=== PATIENT | female | born 1990 | race Caucasian/White ===

== ENCOUNTER 2020-05-31 22:51 | Emergency (ER) | payer BC ==
[~2020-05-31] VITALS: Ht 172.7 cm; Wt 93.0 kg
[2020-06-01 00:47] LABS: BASOPHILS % 0.4 % (0.0-1.0); EOSINOPHILS # (AUTO) 0.1 (0.0-0.4); EOSINOPHILS % 1.3 % (0.0-6.0); HEMATOCRIT 37.8 % (34.2-44.1); HEMOGLOBIN 12.7 g/dL (12.0-16.0); LYMPHOCYTES # (AUTO) 1.6 (1.0-3.2); LYMPHOCYTES % 16.4 % (18.0-39.1); MEAN CORPUSCULAR HEMOGLOBIN 32.2 pg (28-32); MEAN CORPUSCULAR HGB CONC 33.6 g/dL (31-35); MEAN CORPUSCULAR VOLUME 95.9 fL (81-99); MONOCYTES # (AUTO) 0.6 (0.2-0.8); MONOCYTES % 6.4 % (4.4-11.3); NEUTROPHILS # (AUTO) 7.4 (2.1-6.9); NEUTROPHILS % 74.2 % (38.7-80.0); PLATELET COUNT 213 x10e3/uL (140-360); RED BLOOD COUNT 3.94 x10e6/uL (3.6-5.1); RED CELL DISTRIBUTION WIDTH 13.7 % (11.7-14.4)
--- NOTE | 2020-06-01 01:00 | Emergency Department Note ---
History of Present Illnes History of Present Illness Chief Complaint: > 20 Weeks History of Present Illness This is a 29 year old female arrived to the ED with complaints of nausea vomiting and vaginal bleeding, patient is 24 weeks gestation per ultrasound. Historian: Patient Arrival Mode: Car Onset (how long ago): hour(s) Radiation: Reports non-radiation Severity: mild Onset quality: sudden Duration (how long): hour(s) Timing of current episode: constant Progression: unchanged Chronicity: new Context: Reports recent illness Past Medical/Family History Physician Review I have reviewed the patient's past medical and family history. Any updates have been documented here. Past Medical History Recent Fever: No Clinical Suspicion of Infectio: No New/Unexplained Change in Ment: No Past Medical History: None Past Surgical History: Bariatric Surgery Social History Physically hurt or threatened: No Review of Systems Review of Systems Constitutional: Reports no symptoms EENTM: Reports no symptoms Cardiovascular: Reports no symptoms Respiratory: Reports no symptoms Gastrointestinal: Reports no symptoms Genitourinary: Reports as per HPI Musculoskeletal: Reports no symptoms Integumentary: Reports no symptoms Neurological: Reports no symptoms Psychological: Reports no symptoms Endocrine: Reports no symptoms Hematological/Lymphatic: Reports no symptoms Physical Exam Related Data Allergies: Coded Allergies: [email or web address] (Verified Allergy, Intermediate, 05/31/20) Triage Vital Signs Vital Signs Date Time Temp Pulse Resp B/P (MAP) Pulse Ox O2 Delivery O2 Flow Rate FiO2 05/31/20 23:06 99.4 87 20 137/83 100 Room Air Vital signs reviewed: Yes Physical Exam CONSTITUTIONAL Constitutional: Present well-developed, Present well-nourished HENT HENT: Present normocephalic, Present atraumatic, Present oropharynx clear/moist, Present nose normal HENT L/R: Present left ext ear normal, Present right ext ear normal EYES Eyes: Reports PERRL, Reports conjunctivae normal NECK Neck: Present ROM normal PULMONARY Pulmonary: Present effort normal, Present breath sounds normal CARDIOVASCULAR Cardiovascular: Present regular rhythm, Present heart sounds normal, Present capillary refill normal, Present normal rate GASTROINTESTINAL Abdominal: Present soft, Present nontender, Present bowel sounds normal GENITOURINARY Genitourinary: Present exam deferred SKIN Skin: Present warm, Present dry MUSCULOSKELETAL Musculoskeletal: Present ROM normal NEUROLOGICAL Neurological: Present alert, Present oriented x 3, Present no gross motor or sensory deficits PSYCHOLOGICAL Psychological: Present mood/affect normal, Present judgement normal Results Laboratory Result Diagram: 06/01/20 0040 Laboratory Laboratory Tests Test 06/01/20 00:40 White Blood Count 9.95 x10e3/uL (4.8-10.8) Red Blood Count 3.94 x10e6/uL (3.6-5.1) Hemoglobin 12.7 g/dL (12.0-16.0) Hematocrit 37.8 % (34.2-44.1) Mean Corpuscular Volume 95.9 fL (81-99) Mean Corpuscular Hemoglobin 32.2 pg (28-32) Mean Corpuscular Hemoglobin Concent 33.6 g/dL (31-35) Red Cell Distribution Width 13.7 % (11.7-14.4) Platelet Count 213 x10e3/uL (140-360) Neutrophils (%) (Auto) 74.2 % (38.7-80.0) Lymphocytes (%) (Auto) 16.4 % (18.0-39.1) Monocytes (%) (Auto) 6.4 % (4.4-11.3) Eosinophils (%) (Auto) 1.3 % (0.0-6.0) Basophils (%) (Auto) 0.4 % (0.0-1.0) Neutrophils # (Auto) 7.4 (2.1-6.9) Lymphocytes # (Auto) 1.6 (1.0-3.2) Monocytes # (Auto) 0.6 (0.2-0.8) Eosinophils # (Auto) 0.1 (0.0-0.4) Basophils # (Auto) 0.0 (0.0-0.1) Absolute Immature Granulocyte (auto 0.13 x10e3/uL (0-0.1) Lab results reviewed: Yes Laboratory comments Laboratory Tests Test 06/01/20 00:40 06/01/20 00:18 White Blood Count 9.95 x10e3/uL (4.8-10.8) Red Blood Count 3.94 x10e6/uL (3.6-5.1) Hemoglobin 12.7 g/dL (12.0-16.0) Hematocrit 37.8 % (34.2-44.1) Mean Corpuscular Volume 95.9 fL (81-99) Mean Corpuscular Hemoglobin 32.2 pg (28-32) Mean Corpuscular Hemoglobin Concent 33.6 g/dL (31-35) Red Cell Distribution Width 13.7 % (11.7-14.4) Platelet Count 213 x10e3/uL (140-360) Neutrophils (%) (Auto) 74.2 % (38.7-80.0) Lymphocytes (%) (Auto) 16.4 % (18.0-39.1) Monocytes (%) (Auto) 6.4 % (4.4-11.3) Eosinophils (%) (Auto) 1.3 % (0.0-6.0) Basophils (%) (Auto) 0.4 % (0.0-1.0) Neutrophils # (Auto) 7.4 (2.1-6.9) Lymphocytes # (Auto) 1.6 (1.0-3.2) Monocytes # (Auto) 0.6 (0.2-0.8) Eosinophils # (Auto) 0.1 (0.0-0.4) Basophils # (Auto) 0.0 (0.0-0.1) Absolute Immature Granulocyte (auto 0.13 x10e3/uL (0-0.1) Sodium Level 135 mmol/L (136-145) Potassium Level 3.8 mmol/L (3.5-5.1) Chloride Level 107 mmol/L (98-107) Carbon Dioxide Level 21 mmol/L (22-29) Anion Gap 10.8 mmol/L (8-16) Blood Urea Nitrogen 8 mg/dL (7-26) Creatinine 0.59 mg/dL (0.57-1.11) Estimat Glomerular Filtration Rate > 60 ML/MIN (60-) BUN/Creatinine Ratio 14 (6-25) Glucose Level 81 mg/dL (74-118) Calcium Level 9.9 mg/dL (8.4-10.2) Total Bilirubin 0.1 mg/dL (0.2-1.2) Aspartate Amino Transf (AST/SGOT) 22 IU/L (5-34) Alanine Aminotransferase (ALT/SGPT) 26 IU/L (0-55) Alkaline Phosphatase 48 IU/L (40-150) Total Protein 6.5 g/dL (6.5-8.1) Albumin 3.2 g/dL (3.5-5.0) Globulin 3.3 g/dL (2.3-3.5) Albumin/Globulin Ratio 1.0 (0.8-2.0) Urine Color Yellow (YELLOW) Urine Clarity Sl cloudy (CLEAR) Urine pH 6.5 (5 - 7) Urine Specific Mitchell 1.020 (1.010-1.025) Urine Protein Negative (NEGATIVE) Urine Glucose (UA) Negative (NEGATIVE) Urine Ketones Negative (NEGATIVE) Urine Blood Negative (NEGATIVE) Urine Nitrite Negative (NEGATIVE) Urine Bilirubin Negative (NEGATIVE) Urine Urobilinogen 0.2 mg/dL (0.2 - 1) Urine Leukocyte Esterase Trace (NEGATIVE) Urine RBC 0-5 /HPF (0-5) Urine WBC 6-10 /HPF (0-5) Urine Epithelial Cells Moderate /LPF (NONE) Urine Bacteria Few /HPF (NONE) Assessment & Plan Medical Decision Making MDM 29-year-old female arrived to the ED with complaints of vaginal spotting and izzy sea vomiting as well as abdominal pain. Patient is 24 weeks gestation. Patient stabilizing the ED all lab work reviewed. Patient transferred to [facility] for further workup and OB toco monitoring. Assessment & Plan Final Impression: (1) related abdominal pain of lower quadrant, antepartum Depart Disposition: TRANS TO OTHER [facility] Last Vital Signs Date Time Temp Pulse Resp B/P (MAP) Pulse Ox O2 Delivery O2 Flow Rate FiO2 05/31/20 23:06 99.4 87 20 137/83 100 Room Air ERIKA NANCE DO Jun 01, 2020 01:00
[2020-06-01 01:06] LABS: ALANINE AMINOTRANSFERASE 26 IU/L (0-55); ALBUMIN 3.2 g/dL (3.5-5.0); ALKALINE PHOSPHATASE 48 IU/L (40-150); ANION GAP 10.8 mmol/L (8-16); BLOOD UREA NITROGEN 8 mg/dL (7-26); BUN/CREATININE RATIO 14 (6-25); CALCIUM 9.9 mg/dL (8.4-10.2); CARBON DIOXIDE 21 mmol/L (22-29); CHLORIDE 107 mmol/L (98-107); CREATININE, SERUM 0.59 mg/dL (0.57-1.11); EST GLOMERULAR FILTRATION RATE > 60 ML/MIN (60-); GLUCOSE 81 mg/dL (74-118); POTASSIUM 3.8 mmol/L (3.5-5.1); SODIUM 135 mmol/L (136-145)
[2020-06-01 01:14] LABS: BILIRUBIN,URINE NEGATIVE (NEGATIVE); CLARITY,URINE SL CLOUDY (CLEAR); COLOR,URINE YELLOW (YELLOW); KETONES,URINE NEGATIVE (NEGATIVE); LEUKOCYTE ESTERASE ,URINE TRACE (NEGATIVE); NITRITE,URINE NEGATIVE (NEGATIVE); PROTEIN,URINE DIPSTICK NEGATIVE (NEGATIVE); URINE UROBILINOGEN 0.2 mg/dL (0.2 - 1)
[2020-06-01 01:22] LABS: BACTERIA,URINE FEW /HPF; EPITHELIAL CELLS,URINE MODERATE /LPF; RBC,URINE 0-5 /HPF (0-5)
--- NOTE | 2020-06-01 03:20 | NUR ---
PT DECLINED MEDICAL TRANSPORT TO RECEIVING FACILITY. PT VERBALIZES UNDERSTANDING OF RISKS FOR EMS TRANSPORT. PT HAS NO FURTHER QUESTIONS AT THIS TIME. AOS NOTIFIED AND AWARE.
[2020-06-01 03:45] VITALS: BP 108/75
== END 2020-06-01 03:47 | disposition other institution (70) ==
LOC: ER 23:38
DX: O26.92 Pregnancy related conditions, unspecified, second trimester (principal); O26.852 Spotting complicating pregnancy, second trimester; O21.2 Late vomiting of pregnancy; R10.30 Lower abdominal pain, unspecified; Z98.84 Bariatric surgery status
CPT/HCPCS: 36415; 80053; 81001; 85025; 86850; 86900; 93005; 99284

== ENCOUNTER 2022-06-02 18:33 | Emergency (ER) | payer OTHER, MEDICARE ==
[~2022-06-02] VITALS: Ht 172.7 cm; Wt 90.7 kg
[2022-06-02] MEDS ORDERED: METHYLPREDNISOLONE SOD SUCC 1,000 MG/8 ML VIAL IV ONE (19:00)
[2022-06-02 19:13] LABS: BASOPHILS % 0.4 % (0.0-1.0); EOSINOPHILS # (AUTO) 0.1 (0.0-0.4); HEMATOCRIT 44.9 % (34.2-44.1); HEMOGLOBIN 14.6 g/dL (12.0-16.0); LYMPHOCYTES % 10.7 % (18.0-39.1); MEAN CORPUSCULAR HEMOGLOBIN 30.7 pg (28-32); MEAN CORPUSCULAR HGB CONC 32.5 g/dL (31-35); MEAN CORPUSCULAR VOLUME 94.5 fL (81-99); MONOCYTES # (AUTO) 0.3 (0.2-0.8); MONOCYTES % 3.3 % (4.4-11.3); NEUTROPHILS # (AUTO) 7.9 (2.1-6.9); NEUTROPHILS % 84.2 % (38.7-80.0); PLATELET COUNT 278 x10e3/uL (140-360); RED BLOOD COUNT 4.75 x10e6/uL (3.6-5.1); RED CELL DISTRIBUTION WIDTH 15.5 % (11.7-14.4)
[2022-06-02] MEDS ORDERED: METHYLPREDNISOLONE SOD SUCC 1,000 MG in SODIUM CHLORIDE 0.9% 250ML 250 ML IV ONE (19:15)
[2022-06-02 19:37] LABS: ALANINE AMINOTRANSFERASE 20 IU/L (0-55); ALBUMIN 3.7 g/dL (3.5-5.0); ALBUMIN/GLOBULIN RATIO 0.9 (0.8-2.0); ALKALINE PHOSPHATASE 62 IU/L (40-150); BLOOD UREA NITROGEN 13 mg/dL (7-26); BUN/CREATININE RATIO 16 (6-25); CALCIUM 9.1 mg/dL (8.4-10.2); CARBON DIOXIDE 22 mmol/L (22-29); CHLORIDE 106 mmol/L (98-107); CREATININE, SERUM 0.83 mg/dL (0.57-1.11); GLUCOSE 121 mg/dL (74-118); SODIUM 138 mmol/L (136-145)
[2022-06-02] MEDS ORDERED: KETOROLAC TROMETHAMINE 30 MG/ML VIAL IV STA (20:02)
[2022-06-02] MEDS ORDERED: ONDANSETRON HCL INJ 2MG/ML 2ML 2 MG/ML VIAL IV STA (20:57)
[2022-06-02] MEDS ORDERED: CYCLOBENZAPRINE HCL 10 MG TAB PO ONE (21:00)
[2022-06-02] MEDS ORDERED: Morphine 4mg INJECTION 4 MG/ML INJ IV ONE (21:00)
[2022-06-02] MEDS ORDERED: GABAPENTIN 300 MG CAP PO ONE (23:30)
[2022-06-02 23:46] LABS: CLARITY,URINE SL CLOUDY (CLEAR); COLOR,URINE YELLOW (YELLOW); KETONES,URINE NEGATIVE (NEGATIVE); LEUKOCYTE ESTERASE ,URINE TRACE (NEGATIVE); NITRITE,URINE NEGATIVE (NEGATIVE); PROTEIN,URINE DIPSTICK NEGATIVE (NEGATIVE); URINE UROBILINOGEN 0.2 mg/dL (0.2 - 1)
[2022-06-02 23:51] LABS: BACTERIA,URINE FEW /HPF; EPITHELIAL CELLS,URINE MANY /LPF; RBC,URINE 0-5 /HPF (0-5)
[2022-06-02 23:53] LABS: AMPHETAMINES SCREEN,URINE NEGATIVE (NEGATIVE); BENZODIAZEPINES SCREEN,URINE POSITIVE (NEGATIVE); PHENCYCLIDINE SCREEN,URINE NEGATIVE (NEGATIVE)
== END 2022-06-03 00:07 | disposition other institution (70) ==
LOC: ER 18:36
DX: R20.0 Anesthesia of skin (principal); G35 Multiple sclerosis; R53.1 Weakness; Z98.84 Bariatric surgery status
CPT/HCPCS: 0223U; 36415; 80053; 80307; 81001; 84702; 85025; 99284; J1885; J2270; J2405; J2930; J7050

== ENCOUNTER 2024-08-11 20:39 | Inpatient (IN) | payer MEDICARE, OTHER ==
[~2024-08-11] VITALS: Ht 172.7 cm; Wt 93.0 kg
[2024-08-11] MEDS ORDERED: PIPERACILLIN/TAZOBACTAM 3.375 GM VIAL ONE (21:48)
[2024-08-11] MEDS ORDERED: Morphine 4mg INJECTION 4 MG/ML INJ ONE (21:49)
[2024-08-11] MEDS ORDERED: ONDANSETRON HCL INJ 2MG/ML 2ML 2 MG/ML VIAL ONE (21:49)
[2024-08-11] MEDS ORDERED: SODIUM CHLORIDE 0.9% 1000ML 1,000 ML ONE (21:49)
[2024-08-11 21:59] LABS: AMPHETAMINES SCREEN,URINE POSITIVE (NEGATIVE); BENZODIAZEPINES SCREEN,URINE POSITIVE (NEGATIVE); CANNABINOIDS SCREEN,URINE NEGATIVE (NEGATIVE); METHADONE SCREEN, URINE NEGATIVE (NEGATIVE); OPIATES SCREEN,URINE NEGATIVE (NEGATIVE); PHENCYCLIDINE SCREEN,URINE NEGATIVE (NEGATIVE)
[2024-08-11 22:03] LABS: ALBUMIN 4.1 g/dL (3.5-5.0); ALBUMIN/GLOBULIN RATIO 1.2 (0.8-2.0); ANION GAP 17.2 mmol/L (8-16); BILIRUBIN,TOTAL 0.3 mg/dL (0.2-1.2); CREATININE, SERUM 0.91 mg/dL (0.57-1.11); POTASSIUM 4.2 mmol/L (3.5-5.1); TOTAL PROTEIN 7.5 g/dL (6.5-8.1)
[2024-08-11 22:10] LABS: BASOPHILS % 0.3 % (0.0-1.0); EOSINOPHILS # (AUTO) 0.1 (0.0-0.4); EOSINOPHILS % 1.7 % (0.0-6.0); HEMATOCRIT 43.7 % (34.2-44.1); HEMOGLOBIN 14.1 g/dL (12.0-16.0); LYMPHOCYTES # (AUTO) 1.7 (1.0-3.2); LYMPHOCYTES % 28.4 % (18.0-39.1); MEAN CORPUSCULAR HEMOGLOBIN 31.6 pg (28-32); MEAN CORPUSCULAR HGB CONC 32.3 g/dL (31-35); MONOCYTES # (AUTO) 0.6 (0.2-0.8); MONOCYTES % 10.2 % (4.4-11.3); NEUTROPHILS # (AUTO) 3.6 (2.1-6.9); NEUTROPHILS % 59.1 % (38.7-80.0); PLATELET COUNT 338 x10e3/uL (140-360); RED BLOOD COUNT 4.46 x10e6/uL (3.6-5.1); RED CELL DISTRIBUTION WIDTH 13.4 % (11.7-14.4); WHITE BLOOD COUNT 6.05 x10e3/uL (4.8-10.8)
[2024-08-11] MEDS: ONDANSETRON HCL INJ 2MG/ML 2ML 2 MG/ML VIAL IV PRN (22:20)
[2024-08-11] MEDS: Morphine 4mg INJECTION 4 MG/ML INJ IV PRN (22:20)
[2024-08-11] MEDS: SODIUM CHLORIDE 0.9% 1000ML 1,000 ML IV SCH (22:21)
[2024-08-11 22:37] VITALS: PULSE 81; RESP 21; TEMP 99
[2024-08-11] MEDS ORDERED: IOPAMIDOL 370 MG/ML 100 ML INFUS..BTL INJ ONE (22:50)
[2024-08-11 23:30] VITALS: BP 109/99; PULSE 71; RESP 18; TEMP 98.3; O2SAT 100
[2024-08-11 23:55] VITALS: BP 109/99; PULSE 71; RESP 18; TEMP 98.3; O2SAT 100
[2024-08-12] MEDS ORDERED: MECLIZINE HCL25 MG PO (00:38)
[2024-08-12] MEDS ORDERED: ALPRAZOLAM0.5 MG PO (00:38)
[2024-08-12] MEDS ORDERED: GABAPENTIN300 MG PO (00:38)
[2024-08-12] MEDS ORDERED: MICROGESTIN FE1 EACH PO (00:38)
[2024-08-12] MEDS ORDERED: LAMOTRIGINE100 MG PO (00:38)
[2024-08-12] MEDS ORDERED: VENLAFAXINE HC150 MG PO (00:38)
[2024-08-12] MEDS ORDERED: HYDROCODON-ACE1 EA11 PO (00:38)
[2024-08-12] MEDS ORDERED: TIZANIDINE HCL4 MG PO (00:38)
[2024-08-12 04:30] VITALS: BP 129/79; PULSE 66; RESP 18; TEMP 97.7; O2SAT 100
[2024-08-12 06:08] LABS: BASOPHILS % 0.8 % (0.0-1.0); EOSINOPHILS # (AUTO) 0.2 (0.0-0.4); EOSINOPHILS % 3.6 % (0.0-6.0); HEMATOCRIT 45.5 % (34.2-44.1); HEMOGLOBIN 14.5 g/dL (12.0-16.0); LYMPHOCYTES # (AUTO) 2.1 (1.0-3.2); MEAN CORPUSCULAR HEMOGLOBIN 31.8 pg (28-32); MEAN CORPUSCULAR HGB CONC 31.9 g/dL (31-35); MEAN CORPUSCULAR VOLUME 99.8 fL (81-99); MONOCYTES # (AUTO) 0.6 (0.2-0.8); MONOCYTES % 12.1 % (4.4-11.3); NEUTROPHILS # (AUTO) 2.3 (2.1-6.9); NEUTROPHILS % 43.1 % (38.7-80.0); PLATELET COUNT 265 x10e3/uL (140-360); RED BLOOD COUNT 4.56 x10e6/uL (3.6-5.1); RED CELL DISTRIBUTION WIDTH 13.8 % (11.7-14.4); WHITE BLOOD COUNT 5.22 x10e3/uL (4.8-10.8)
[2024-08-12 06:35] LABS: ALBUMIN 3.8 g/dL (3.5-5.0); ALBUMIN/GLOBULIN RATIO 1.1 (0.8-2.0); ANION GAP 14.4 mmol/L (8-16); BILIRUBIN,TOTAL 0.2 mg/dL (0.2-1.2); CALCIUM 9.2 mg/dL (8.4-10.2); CREATININE, SERUM 0.84 mg/dL (0.57-1.11); POTASSIUM 4.4 mmol/L (3.5-5.1); TOTAL PROTEIN 7.3 g/dL (6.5-8.1)
[2024-08-12] MEDS ORDERED: ACETAMINOPHEN 325 MG TAB PO PRN (08:00)
[2024-08-12] MEDS ORDERED: MECLIZINE HCL 12.5 MG TAB PO PRN (08:00)
[2024-08-12 08:18] VITALS: BP 104/69; PULSE 72; RESP 17; TEMP 97.8; O2SAT 100
[2024-08-12] MEDS: [UNRECOGNIZED DRUG - OTHER] PO SCH (09:00)
[2024-08-12] MEDS: FE FUMARATE PO SCH (09:00)
[2024-08-12] MEDS: NORETH A ET ESTRA PO SCH (09:00)
[2024-08-12] MEDS: VENLAFAXINE HCL 75 MG CAPCR PO SCH (09:13)
[2024-08-12] MEDS: HYDROCODONE/APAP 5MG-325MG TAB PO PRN (09:13)
[2024-08-12] MEDS: LAMOTRIGINE 100 MG TAB PO SCH (09:13)
[2024-08-12 09:50] VITALS: BP 104/69; PULSE 72; RESP 17; TEMP 97.8; O2SAT 100
[2024-08-12] MEDS: Morphine 2mg Syringe 2 MG/ML SYR IV PRN (11:29)
[2024-08-12 12:25] VITALS: BP 107/70; PULSE 69; RESP 18; TEMP 97.8; O2SAT 100
[2024-08-12] MEDS: ALPRAZOLAM 0.5 MG TAB PO PRN (13:26)
[2024-08-12 16:10] VITALS: BP 107/69; PULSE 70; RESP 18; TEMP 98.2; O2SAT 100
[2024-08-12 20:00] VITALS: BP 117/53; PULSE 84; RESP 18; TEMP 97.9; O2SAT 100
[2024-08-12] MEDS: GABAPENTIN 300 MG CAP PO SCH (21:24)
[2024-08-13] VITALS: BP 96/50; PULSE 56; RESP 18; TEMP 98.1; O2SAT 98
[2024-08-13 04:00] VITALS: BP 120/63; PULSE 67; RESP 18; TEMP 96.4; O2SAT 98
[2024-08-13 07:34] VITALS: BP 118/77; PULSE 62; RESP 20; TEMP 97.9; O2SAT 100
[2024-08-13 08:22] VITALS: BP 118/77; PULSE 62; RESP 20; TEMP 97.9; O2SAT 100
[2024-08-13] MEDS ORDERED: DOXYCYCLINE HY100 MG PO (09:33)
[2024-08-13] MEDS ORDERED: AMOX TR-K CLV1 EAC2 PO (10:40)
[2024-08-13 11:27] VITALS: BP 108/64; PULSE 58; RESP 19; TEMP 97.8; O2SAT 100
[2024-08-13] MEDS ORDERED: AMOXICILLIN/CLAVULANATE K 875 MG TAB PO SCH (21:00)
[2024-08-14] MEDS ORDERED: ROPINIROLE HC0.25 MG PO (17:53)
[2024-08-14] MEDS ORDERED: ULTRAM 50MG50 MG PO (17:55)
== END 2024-08-13 13:20 | disposition home or self-care (01) | DRG 603 ==
LOC: ER 20:57 → ERHOLD 21:18 → MED/SURG 23:07
PROVIDERS: ADMIT Internal Medicine; ATTEND Internal Medicine
DX: L03.114 Cellulitis of left upper limb (principal); G35 Multiple sclerosis; G40.909 Epilepsy, unspecified, not intractable, without status epilepticus; F41.8 Other specified anxiety disorders; F15.10 Other stimulant abuse, uncomplicated; S41.112A Laceration without foreign body of left upper arm, initial encounter; X58.XXXA Exposure to other specified factors, initial encounter; Z79.899 Other long term (current) drug therapy
CPT/HCPCS: 36415; 80053; 80307; 81025; 85025; 93971; 99252; 99284; J2270; J2405; J2543; J7030; Q9967

== ENCOUNTER 2024-08-14 02:37 | Emergency (ER) | payer OTHER ==
[~2024-08-14] VITALS: Ht 172.7 cm; Wt 93.0 kg
[~2024-08-14 02:37] MED LIST: ALPRAZOLAM0.5 MG PO; AMOX TR-K CLV1 EAC2 PO; DOXYCYCLINE HY100 MG PO; GABAPENTIN300 MG PO; HYDROCODON-ACE1 EA11 PO; LAMOTRIGINE100 MG PO; MECLIZINE HCL25 MG PO; MICROGESTIN FE1 EACH PO; TIZANIDINE HCL4 MG PO; VENLAFAXINE HC150 MG PO
[2024-08-14 02:46] VITALS: PULSE 84; RESP 16; TEMP 98.6; O2SAT 98
[2024-08-14] MEDS: IBUPROFEN 600 MG TAB PO STA (03:04)
[2024-08-14] MEDS ORDERED: ROPINIROLE HC0.25 MG PO (17:53)
[2024-08-14] MEDS ORDERED: ULTRAM 50MG50 MG PO (17:55)
== END 2024-08-14 03:12 | disposition home or self-care (01) ==
LOC: ER 02:45
DX: T81.89XA Other complications of procedures, not elsewhere classified, initial encounter (principal); T81.30XA Disruption of wound, unspecified, initial encounter; G40.909 Epilepsy, unspecified, not intractable, without status epilepticus; K21.9 Gastro-esophageal reflux disease without esophagitis; G35 Multiple sclerosis; M41.9 Scoliosis, unspecified; F32.A Depression, unspecified; Z98.84 Bariatric surgery status
CPT/HCPCS: 99283

== ENCOUNTER 2024-08-14 14:09 | Inpatient (IN) | payer OTHER ==
[~2024-08-14] VITALS: Ht 172.7 cm; Wt 93.0 kg
[2024-08-14 15:16] VITALS: PULSE 77; RESP 16; TEMP 98.2
[2024-08-14] MEDS ORDERED: ONDANSETRON HCL INJ 2MG/ML 2ML 2 MG/ML VIAL IV PRN (15:30)
[2024-08-14] MEDS ORDERED: SODIUM CHLORIDE FLUSH 10 ML SYR INJ PRN (15:30)
[2024-08-14 15:47] LABS: BASOPHILS # (AUTO) 0.1 (0.0-0.1); BASOPHILS % 0.8 % (0.0-1.0); EOSINOPHILS # (AUTO) 0.2 (0.0-0.4); EOSINOPHILS % 3.7 % (0.0-6.0); HEMATOCRIT 47.2 % (34.2-44.1); HEMOGLOBIN 15.1 g/dL (12.0-16.0); LYMPHOCYTES # (AUTO) 1.9 (1.0-3.2); LYMPHOCYTES % 30.4 % (18.0-39.1); MEAN CORPUSCULAR HEMOGLOBIN 31.6 pg (28-32); MEAN CORPUSCULAR VOLUME 98.7 fL (81-99); MONOCYTES # (AUTO) 0.5 (0.2-0.8); MONOCYTES % 8.5 % (4.4-11.3); NEUTROPHILS # (AUTO) 3.5 (2.1-6.9); NEUTROPHILS % 56.4 % (38.7-80.0); PLATELET COUNT 386 x10e3/uL (140-360); RED BLOOD COUNT 4.78 x10e6/uL (3.6-5.1); RED CELL DISTRIBUTION WIDTH 13.3 % (11.7-14.4); WHITE BLOOD COUNT 6.25 x10e3/uL (4.8-10.8)
[2024-08-14 15:57] LABS: INR 0.79; PROTHROMBIN TIME 11.4 seconds (11.9-14.5)
[2024-08-14 15:58] LABS: PARTIAL THROMBOPLASTIN TIME 29.3 seconds (23.8-35.5)
[2024-08-14 16:05] LABS: ALBUMIN/GLOBULIN RATIO 1.1 (0.8-2.0); ANION GAP 18.5 mmol/L (8-16); BILIRUBIN,TOTAL 0.2 mg/dL (0.2-1.2); CALCIUM 10.1 mg/dL (8.4-10.2); CREATININE, SERUM 0.74 mg/dL (0.57-1.11); POTASSIUM 4.5 mmol/L (3.5-5.1); TOTAL PROTEIN 7.8 g/dL (6.5-8.1)
[2024-08-14] MEDS: Morphine 4mg INJECTION 4 MG/ML INJ IV PRN (17:40)
[2024-08-14 17:42] VITALS: BP 123/88; PULSE 86; RESP 19; TEMP 98.3; O2SAT 99
[2024-08-14] MEDS ORDERED: ROPINIROLE HC0.25 MG PO (17:53)
[2024-08-14] MEDS ORDERED: ULTRAM 50MG50 MG PO (17:55)
[2024-08-14 17:56] VITALS: BP 123/88; PULSE 86; RESP 19; TEMP 98.3; O2SAT 99
[2024-08-14 18:54] VITALS: BP 123/88; PULSE 86; RESP 19; TEMP 98.3; O2SAT 99
[2024-08-14 19:33] VITALS: BP 135/89; PULSE 64; RESP 18; TEMP 98.3; O2SAT 100
[2024-08-14] MEDS ORDERED: HYDROCODONE/APAP 5MG-325MG TAB PO PRN (20:45)
[2024-08-14] MEDS: LAMOTRIGINE 100 MG TAB PO SCH (20:45)
[2024-08-14] MEDS ORDERED: HYDRALAZINE HCL 20 MG/ML VIAL IV PRN (20:45)
[2024-08-14] MEDS ORDERED: ALPRAZOLAM 0.5 MG TAB PO PRN (20:45)
[2024-08-14] MEDS ORDERED: ACETAMINOPHEN 325 MG TAB PO PRN (20:45)
[2024-08-14] MEDS: GABAPENTIN 300 MG CAP PO SCH (21:00)
[2024-08-14] MEDS ORDERED: Vancomycin IV 1 GM in SODIUM CHLORIDE 0.9% 250ML 250 ML IV ONE (21:45)
[2024-08-14] MEDS ORDERED: VANCOMYCIN 1.5 GM/300 ML (PEG) 300 ML IV SCH (21:55)
[2024-08-14] MEDS ORDERED: ROPINIROLE HCL 0.25 MG TAB PO PRN (22:00)
[2024-08-14] MEDS ORDERED: SODIUM CHLORIDE 0.9% 250ML 250 ML ONE (22:17)
[2024-08-14] MEDS: Vancomycin IV 1.5 GM in SODIUM CHLORIDE 0.9% 500ML 500 ML IV ONE (22:31)
[2024-08-14 22:53] VITALS: BP 135/89; PULSE 64; RESP 18; TEMP 98.3; O2SAT 100
[2024-08-15 05:45] VITALS: BP 124/85; PULSE 64; RESP 18; TEMP 97.8; O2SAT 99
[2024-08-15] MEDS: TRAMADOL HCL 50 MG TAB PO SCH (08:30)
[2024-08-15] MEDS: VENLAFAXINE HCL 75 MG CAPCR PO SCH (08:30)
[2024-08-15 08:40] VITALS: BP 117/85; PULSE 83; RESP 18; TEMP 98.8; O2SAT 100
[2024-08-15] MEDS ORDERED: ROPINIROLE HCL 0.25 MG TAB PO SCH (09:00)
[2024-08-15] MEDS ORDERED: LAMOTRIGINE 100 MG TAB PO SCH (09:00)
[2024-08-15] MEDS ORDERED: Vancomycin IV 1 GM in SODIUM CHLORIDE 0.9% 250ML 250 ML IV SCH (09:00)
[2024-08-15] MEDS: VANCOMYCIN 1.5 GM/300 ML (PEG) 300 ML IV SCH (09:13)
[2024-08-15 10:28] VITALS: BP 117/85; PULSE 83; RESP 18; TEMP 98.8; O2SAT 100
[2024-08-15] MEDS: ONDANSETRON HCL INJ 2MG/ML 2ML 2 MG/ML VIAL IV PRN (12:52)
[2024-08-15 13:16] VITALS: BP 113/73; PULSE 79; RESP 18; TEMP 98.2; O2SAT 100
[2024-08-15 16:46] VITALS: BP 118/82; PULSE 63; RESP 18; TEMP 97.6; O2SAT 100
[2024-08-15 20:00] VITALS: BP 120/77; PULSE 66; RESP 16; TEMP 98.4; O2SAT 100
[2024-08-16] VITALS: BP 118/76; PULSE 74; RESP 20; TEMP 97.5; O2SAT 100
[2024-08-16 05:16] VITALS: BP 102/61; PULSE 57; RESP 19; TEMP 97.9; O2SAT 100
[2024-08-16 08:37] VITALS: BP 114/74; PULSE 65; RESP 18; TEMP 98.5; O2SAT 99
[2024-08-16 12:14] VITALS: BP 116/76; PULSE 65; RESP 18; TEMP 98.4; O2SAT 100
[2024-08-16 12:37] VITALS: BP 116/76; PULSE 65; RESP 18; TEMP 98.4; O2SAT 100
== END 2024-08-16 15:20 | disposition home or self-care (01) | DRG 921 ==
LOC: ER 15:14 → ERHOLD 15:28 → MED/SURG2 16:09 → OBSVTOIN 08-15 12:05
PROVIDERS: ADMIT Internal Medicine; ATTEND Internal Medicine
DX: T81.33XA Disruption of traumatic injury wound repair, initial encounter (principal); G40.909 Epilepsy, unspecified, not intractable, without status epilepticus; G35 Multiple sclerosis; F41.9 Anxiety disorder, unspecified; F32.A Depression, unspecified; E66.9 Obesity, unspecified; Z68.31 Body mass index [BMI] 31.0-31.9, adult; W22.8XXA Striking against or struck by other objects, initial encounter; Z98.84 Bariatric surgery status
CPT/HCPCS: 36415; 80053; 85025; 85610; 85730; 99252; 99284; G0378; J2270; J2405; J2543; J7040; J7050

== ENCOUNTER 2024-08-21 23:49 | Emergency (ER) | payer OTHER ==
[~2024-08-21] VITALS: Ht 172.7 cm; Wt 99.8 kg
[~2024-08-21 23:49] MED LIST changes: +ROPINIROLE HC0.25 MG PO; +ULTRAM 50MG50 MG PO
[2024-08-21 23:56] VITALS: PULSE 90; RESP 18; TEMP 97.4
[2024-08-22 00:29] LABS: BASOPHILS # (AUTO) 0.1 (0.0-0.1); BASOPHILS % 0.7 % (0.0-1.0); EOSINOPHILS # (AUTO) 0.1 (0.0-0.4); EOSINOPHILS % 1.8 % (0.0-6.0); HEMATOCRIT 44.3 % (34.2-44.1); LYMPHOCYTES # (AUTO) 2.2 (1.0-3.2); LYMPHOCYTES % 32.7 % (18.0-39.1); MEAN CORPUSCULAR HEMOGLOBIN 31.4 pg (28-32); MEAN CORPUSCULAR HGB CONC 31.6 g/dL (31-35); MEAN CORPUSCULAR VOLUME 99.3 fL (81-99); MONOCYTES # (AUTO) 0.6 (0.2-0.8); MONOCYTES % 9.5 % (4.4-11.3); NEUTROPHILS # (AUTO) 3.7 (2.1-6.9); NEUTROPHILS % 55.2 % (38.7-80.0); PLATELET COUNT 341 x10e3/uL (140-360); RED BLOOD COUNT 4.46 x10e6/uL (3.6-5.1); RED CELL DISTRIBUTION WIDTH 13.5 % (11.7-14.4); WHITE BLOOD COUNT 6.76 x10e3/uL (4.8-10.8)
[2024-08-22 00:52] LABS: ALBUMIN 4.1 g/dL (3.5-5.0); ALBUMIN/GLOBULIN RATIO 1.3 (0.8-2.0); BILIRUBIN,TOTAL 0.3 mg/dL (0.2-1.2); CALCIUM 9.6 mg/dL (8.4-10.2); CREATININE, SERUM 0.83 mg/dL (0.57-1.11); TOTAL PROTEIN 7.3 g/dL (6.5-8.1)
[2024-08-22] MEDS: KETOROLAC TROMETHAMINE 30 MG/ML VIAL IV STA (01:05)
[2024-08-22 01:07] LABS: PREGNANCY TEST, URINE NEGATIVE (NEGATIVE)
[2024-08-22 01:17] LABS: AMPHETAMINES SCREEN,URINE NEGATIVE (NEGATIVE); OPIATES SCREEN,URINE NEGATIVE (NEGATIVE); PHENCYCLIDINE SCREEN,URINE NEGATIVE (NEGATIVE)
[2024-08-22 01:18] LABS: BENZODIAZEPINES SCREEN,URINE NEGATIVE (NEGATIVE); CANNABINOIDS SCREEN,URINE NEGATIVE (NEGATIVE); METHADONE SCREEN, URINE NEGATIVE (NEGATIVE)
[2024-08-22] MEDS ORDERED: IOPAMIDOL 370 MG/ML 100 ML INFUS..BTL INJ ONE (01:47)
[2024-08-22 02:39] VITALS: BP 112/79; PULSE 64; RESP 17; TEMP 98.3; O2SAT 100
== END 2024-08-22 02:52 | disposition home or self-care (01) ==
LOC: ER 23:55
DX: T81.89XA Other complications of procedures, not elsewhere classified, initial encounter (principal)
CPT/HCPCS: 36415; 73201; 80053; 80307; 81025; 85025; 99283; J1885; Q9967